=== PATIENT | male | born 1985 | race African-American/Black ===

== ENCOUNTER 2021-11-30 18:08 | Inpatient (IN) | payer SELFPAY ==
[2021-11-30] MEDS ORDERED: ceFAZolin (BATCH) 2 GM/100 ML BAG ONE (19:05)
[2021-11-30 20:14] LABS: #Basophils 0.1 thou/uL (0.0-0.2); #Eosinphils 0.1 thou/uL (0.0-0.7); #Lymphocytes 1.9 thou/uL (1.20-3.40); #Monocytes 0.6 thou/uL (0.11-0.59); #Neutrophils 2.2 thou/uL (1.40-6.50); %Lymphocytes 38.7 % (21.0-51.0); %Monocytes 12.8 % (0.0-10.0); %Neutrophils 44.6 % (42.0-75.0); Hemoglobin 14.9 g/dL (14.0-18.0); Mean Corpuscular HGB CONC 34.3 g/dL (32.0-36.0); Mean Corpuscular Hemoglobin 33.6 pg (27.0-31.0); Mean Platelet Volume 7.6 fL (7.4-10.4); Platelet Count 243 thou/uL (130-400); RBC Distribution Width 11.7 % (11.5-14.5); Red Blood Cell (RBC) Count 4.43 mill/uL (4.70-6.10)
[2021-11-30] MEDS ORDERED: Boostrix 0.5 ML (Tdap) VIAL ONE (20:16)
[2021-11-30] MEDS ORDERED: Morphine 4 MG/ML VIAL ONE ×2 (20:16→21:51)
[2021-11-30] MEDS ORDERED: Ondansetron PF 4 MG/2 ML Vial ONE (20:16)
[2021-11-30 20:21] LABS: INR-International Normal Ratio 1.1; PTT 30.4 sec (22.9-36.1); Prothrombin Time 14.3 sec (12.0-14.7)
[2021-11-30 20:22] LABS: ALT (SGPT) 9 U/L (8-55); AST (SGOT) 20 U/L (5-34); Albumin 4.5 g/dL (3.5-5.0); Alcohol Less than 10 mg/dL (Less than 10); Alkaline Phosphatase 49 U/L (40-110); Anion Gap 18 mmol/L (10-20); BUN (Urea Nitrogen) 12 mg/dL (8.9-20.6); Bilirubin, Total 0.9 mg/dL (0.2-1.2); Calc. Creatinine Clearance 0 mL/min (70-130); Calcium 9.5 mg/dL (7.8-10.44); Carbon Dioxide 19 mmol/L (22-29); Chloride 105 mmol/L (98-107); Globulin 3.2 g/dL (2.4-3.5); Glucose 127 mg/dL (70-105); Magnesium 1.6 mg/dL (1.6-2.6); Phosphorus 2.5 mg/dL (2.3-4.7); Protein, Total 7.7 g/dL (6.0-8.3); Sodium 139 mmol/L (136-145)
[2021-11-30 20:24] LABS: Lactic Acid 2.1 mmol/L (0.5-2.2)
[2021-11-30 20:34] LABS: Potassium 2.9 mmol/L (3.5-5.1)
[2021-11-30] MEDS ORDERED: hydrALAZINE 20 MG/ML VIAL SLOW IVP PRN (20:38)
[2021-11-30] MEDS ORDERED: Dextrose 5% in Water 1,000 ML IV PRN (20:38)
[2021-11-30] MEDS ORDERED: Morphine 4 MG/ML VIAL SLOW IVP PRN (20:38)
[2021-11-30] MEDS ORDERED: Dextrose 50% Abboject 50 ML SYRINGE SLOW IVP PRN (20:38)
[2021-11-30] MEDS ORDERED: Ondansetron PF 4 MG/2 ML Vial IVP PRN (20:38)
[2021-11-30] MEDS ORDERED: Cyclobenzaprine 10 MG TAB PO PRN (20:40)
[2021-11-30] MEDS ORDERED: traMADol HCl 50 MG TAB PO PRN ×2 (20:40)
[2021-11-30] MEDS ORDERED: Sodium Chloride 0.9% 1,000 ML IV SCH (20:45)
[2021-11-30] MEDS ORDERED: Magnesium 2 GM/50 ML(in water) 2 GM in Premix Bag 1 BAG IVPB SCH (20:45)
[2021-11-30] MEDS ORDERED: Potassium Phosphate 30 MMOL in Sodium Chloride 0.9% 250 ML 250 ML IVPB SCH (21:00)
[2021-11-30] MEDS ORDERED: ceFAZolin 2 GM/Dextrose 50 ML 2 GM in Premix Bag 1 BAG IVPB SCH (22:00)
[2021-11-30] MEDS: Ibuprofen 200 MG TAB PO SCH (22:31)
[2021-11-30] MEDS: levETIRAcetam 500 MG TAB PO SCH (22:31)
[2021-11-30] MEDS: Famotidine 20 MG TAB PO SCH (22:31)
[2021-11-30] MEDS: Gabapentin 300 MG CAP PO SCH (22:32)
[2021-11-30] MEDS: Senokot S 8.6-50 MG TAB PO SCH (22:34)
[2021-11-30 22:52] VITALS: BMI 20.3
[2021-11-30] MEDS: CEFAZOLIN 2 GM in Sodium Chloride 0.9% 100 ML IVPB SCH (23:57)
[2021-11-30] MEDS ORDERED: Acetaminophen 500 MG TAB PO SCH (23:59)
[2021-12-01] MEDS ORDERED: Acetaminophen/Codeine 30-300mg Tablet PO PRN (00:26)
[2021-12-01 01:59] LABS: Amphetamine Not Detected (NotDetected); Barbiturates Screen Not Detected (NotDetected); Benzodiazepine Screen Detected (NotDetected); Cocaine Metabolite Screen Not Detected (NotDetected); Methadone Not Detected (NotDetected); Methamphetamine Not Detected (NotDetected); Opiate Screen Detected (NotDetected); Oxycodone Screen Not Detected (NotDetected); Phencyclidine (PCP) Not Detected (NotDetected); THC/Cannabinoid Screen Detected (NotDetected); Tricyclic Screen Not Detected (NotDetected)
[2021-12-01 02:46] LABS: SARS-CoV-2 NAA Rapid Test Not Detected (NotDetected)
[2021-12-01] MEDS: Ibuprofen 200 MG TAB PO SCH ×3 (05:10→21:09)
[2021-12-01] MEDS: Acetaminophen 325 MG TAB PO SCH ×4 (05:10→23:13)
[2021-12-01 05:38] LABS: #Eosinphils 0.1 thou/uL (0.0-0.7); #Lymphocytes 1.8 thou/uL (1.20-3.40); #Monocytes 0.9 thou/uL (0.11-0.59); #Neutrophils 5.2 thou/uL (1.40-6.50); %Basophils 0.6 % (0.0-1.0); %Eosinophils 0.7 % (0.0-10.0); %Lymphocytes 22.2 % (21.0-51.0); %Monocytes 11.4 % (0.0-10.0); %Neutrophils 65.1 % (42.0-75.0); Hemoglobin 13.1 g/dL (14.0-18.0); Mean Corpuscular HGB CONC 34.2 g/dL (32.0-36.0); Mean Corpuscular Hemoglobin 33.1 pg (27.0-31.0); Mean Platelet Volume 6.9 fL (7.4-10.4); Platelet Count 228 thou/uL (130-400); RBC Distribution Width 11.5 % (11.5-14.5); Red Blood Cell (RBC) Count 3.95 mill/uL (4.70-6.10); White Blood Cell (WBC) Count 7.9 thou/uL (4.8-10.8)
[2021-12-01] MEDS ORDERED: ceFAZolin 2 GM/Dextrose 50 ML 2 GM in Premix Bag 1 BAG IVPB SCH ×2 (06:00→08:00)
[2021-12-01 06:07] LABS: Anion Gap 12 mmol/L (10-20); BUN (Urea Nitrogen) 10 mg/dL (8.9-20.6); Calc. Creatinine Clearance 102 mL/min (70-130); Calcium 8.5 mg/dL (7.8-10.44); Carbon Dioxide 26 mmol/L (22-29); Chloride 105 mmol/L (98-107); Glucose 99 mg/dL (70-105); Magnesium 2.4 mg/dL (1.6-2.6); Phosphorus 5.3 mg/dL (2.3-4.7); Potassium 4.1 mmol/L (3.5-5.1); Sodium 139 mmol/L (136-145)
[2021-12-01] MEDS ORDERED: Midazolam HCl 2 mg/2 ml Vial ONE (07:35)
[2021-12-01] MEDS ORDERED: HYDROmorphone 0.5 MG/0.5 ML SYRINGE ONE (07:44)
[2021-12-01] MEDS ORDERED: Acetaminophen 325 MG TAB ONE (07:53)
[2021-12-01] MEDS ORDERED: Sodium Chloride 0.9% 100 ML ONE (07:53)
[2021-12-01] MEDS ORDERED: CEFAZOLIN 2 GM VIAL ONE (07:53)
[2021-12-01] MEDS ORDERED: Ampicillin 2 GM VIAL ONE (07:53)
[2021-12-01] MEDS ORDERED: PHENYLEPHRINE-NS 100 MCG/ML 10 ML SYRINGE ONE (08:07)
[2021-12-01] MEDS ORDERED: Ketorolac Tromethamine 30 MG/ML VIAL ONE (08:07)
[2021-12-01] MEDS ORDERED: PROPOFOL 200 MG/20 ML VIAL ONE (08:07)
[2021-12-01] MEDS ORDERED: Ondansetron PF 4 MG/2 ML Vial ONE (08:07)
[2021-12-01] MEDS ORDERED: ePHEDrine 50 MG/ML VIAL ONE (08:07)
[2021-12-01] MEDS ORDERED: Dexamethasone 20 MG/5 ML VIAL ONE (08:07)
[2021-12-01] MEDS ORDERED: Lidocaine 1% PF 5 ML VIAL ONE (08:07)
[2021-12-01] MEDS ORDERED: Promethazine HCl 25 MG/ML VIAL IM PRN (09:56)
[2021-12-01] MEDS ORDERED: PACU-Morphine 4MG/ML VIAL SLOW IVP PRN (09:56)
[2021-12-01] MEDS ORDERED: Promethazine HCl 25 MG/ML VIAL IVPB PRN (09:56)
[2021-12-01] MEDS ORDERED: HYDROmorphone 2 MG/ML VIAL SLOW IVP PRN (09:56)
[2021-12-01] MEDS ORDERED: Ondansetron HCl/PF 4 MG/2 ML Vial IVP PRN (09:56)
[2021-12-01] MEDS: CEFAZOLIN 2 GM in Sodium Chloride 0.9% 100 ML IVPB SCH ×4 (11:22→23:14)
[2021-12-01] MEDS: Gabapentin 300 MG CAP PO SCH ×3 (11:23→21:09)
[2021-12-01] MEDS: Polyethylene Glycol 3350 17 GM Packet PO SCH (11:31)
[2021-12-01] MEDS: Famotidine 20 MG TAB PO SCH ×2 (11:32→21:10)
[2021-12-01] MEDS: Senokot S 8.6-50 MG TAB PO SCH ×2 (11:33→21:10)
[2021-12-01] MEDS: levETIRAcetam 500 MG TAB PO SCH ×2 (11:33→21:09)
[2021-12-01] MEDS: Acetaminophen/Codeine 30-300mg Tablet PO PRN (23:14)
[2021-12-02 05:46] VITALS: TEMP 98.2
[2021-12-02] MEDS: Acetaminophen/Codeine 30-300mg Tablet PO PRN (06:01)
[2021-12-02] MEDS: Ibuprofen 200 MG TAB PO SCH ×2 (06:01→13:08)
[2021-12-02] MEDS: Acetaminophen 325 MG TAB PO SCH ×2 (06:01→13:08)
[2021-12-02 06:24] LABS: #Eosinphils 0.1 thou/uL (0.0-0.7); #Lymphocytes 2.2 thou/uL (1.20-3.40); %Basophils 0.3 % (0.0-1.0); %Eosinophils 0.6 % (0.0-10.0); %Lymphocytes 21.5 % (21.0-51.0); %Monocytes 9.9 % (0.0-10.0); %Neutrophils 67.8 % (42.0-75.0); Mean Corpuscular HGB CONC 33.6 g/dL (32.0-36.0); Mean Corpuscular Hemoglobin 33.2 pg (27.0-31.0); Mean Corpuscular Volume 98.8 fL (78.0-98.0); Mean Platelet Volume 7.7 fL (7.4-10.4); Platelet Count 208 thou/uL (130-400); RBC Distribution Width 11.6 % (11.5-14.5); White Blood Cell (WBC) Count 10.3 thou/uL (4.8-10.8)
[2021-12-02 07:12] LABS: Anion Gap 9 mmol/L (10-20); BUN (Urea Nitrogen) 13 mg/dL (8.9-20.6); Calc. Creatinine Clearance 109 mL/min (70-130); Calcium 8.5 mg/dL (7.8-10.44); Carbon Dioxide 26 mmol/L (22-29); Chloride 109 mmol/L (98-107); Glucose 102 mg/dL (70-105); Phosphorus 4.1 mg/dL (2.3-4.7); Potassium 3.8 mmol/L (3.5-5.1); Sodium 140 mmol/L (136-145)
[2021-12-02] MEDS ORDERED: levETIRAcetam 500 mg/5 ml Oral Solution PO SCH ×2 (09:00)
[2021-12-02] MEDS: Famotidine 20 MG TAB PO SCH (09:31)
[2021-12-02] MEDS: Senokot S 8.6-50 MG TAB PO SCH (09:31)
[2021-12-02] MEDS: Gabapentin 300 MG CAP PO SCH ×2 (09:31→13:07)
[2021-12-02] MEDS: Polyethylene Glycol 3350 17 GM Packet PO SCH (09:31)
[2021-12-02 13:30] VITALS: BP 133/72
== END 2021-12-02 13:30 | disposition home or self-care (01) | DRG 494 ==
LOC: ERS 18:08 → SJJU 20:18 → EEVIPCON 20:18
PROVIDERS: ADMIT Nurse Practitioner Acute Care; ATTEND Surgery
PROC: 0QHH36Z Insertion of Intramedullary Internal Fixation Device into Left Tibia, Percutaneous Approach (ICD-10-PCS; principal; 2021-12-01)
DX: S82.292B Other fracture of shaft of left tibia, initial encounter for open fracture type I or II (principal); G40.909 Epilepsy, unspecified, not intractable, without status epilepticus; Z20.822 Contact with and (suspected) exposure to COVID-19; F17.210 Nicotine dependence, cigarettes, uncomplicated; X95.9XXA Assault by unspecified firearm discharge, initial encounter; E87.6 Hypokalemia; Z79.899 Other long term (current) drug therapy
CPT/HCPCS: 36415; 76000; 80048; 80053; 80306; 80307; 83605; 83735; 84100; 85025; 85610; 85730; 86850; 86900; 86901; 90715; C1713; G0390; J0290; J0690; J1100; J1170; J1885; J2250; J2270; J2405; J2704; J3475; J3490; J7050; U0002

== ENCOUNTER 2023-02-25 17:12 | Emergency (ER) | payer BC ==
[2023-02-25] MEDS ORDERED: Ketorolac Tromethamine 30 MG/ML VIAL ONE (17:45)
== END 2023-02-25 19:47 | disposition home or self-care (01) ==
LOC: ERS 17:12
DX: M79.605 Pain in left leg (principal); F17.210 Nicotine dependence, cigarettes, uncomplicated
CPT/HCPCS: 96372; J1885